=== PATIENT | female | born 1960 | race Caucasian/White ===

== ENCOUNTER 2024-06-04 08:46 | Day surgery (SDC) | payer MEDICARE, OTHER | END 2024-06-04 10:30 | disposition home or self-care (01) | LOC: SDC-PAIN 08:46 | PROVIDERS: ATTEND Psychiatry & Neurology Pain Medicine | DX: Z53.8 Procedure and treatment not carried out for other reasons (principal); E11.9 Type 2 diabetes mellitus without complications | CPT/HCPCS: 82947 ==

== ENCOUNTER 2024-07-16 09:16 | Day surgery (SDC) | payer MEDICARE, OTHER ==
[2024-07-16] MEDS ORDERED: Sodium Chloride 0.9(Preservative Free) 10 ML IJ ONE (09:17)
[2024-07-16] MEDS ORDERED: Decadron 4 MG INJ IV ONE (09:17)
[2024-07-16] MEDS ORDERED: DIPRIVAN 200 MG/20 ML IV ONE (11:03)
--- NOTE | 2024-07-16 12:16 | XRAY ---
44 seconds of fluoroscopy was used in surgery for a left L4-S1 transforaminal AMPARO.
--- NOTE | 2024-07-16 12:19 | XRAY ---
Indication: Left L4-S1 transforaminal AMPARO. Intraoperative fluoroscopy provided for 44 seconds. 7 digital spot images submitted for interpretation demonstrates posterior needle tips projecting over left L4 and L5 nerve roots. Small amount of contrast injected for needle tip placement. Correlate with intraoperative findings/report.
== END 2024-07-16 11:55 | disposition home or self-care (01) ==
LOC: SDC-PAIN 09:16
PROVIDERS: ATTEND Psychiatry & Neurology Pain Medicine
DX: M54.16 Radiculopathy, lumbar region (principal); E11.9 Type 2 diabetes mellitus without complications
CPT/HCPCS: 64483; 64484; 72100; 77003; 82947; J1100; J2704; Q9966